=== PATIENT | female | born 1995 | race Caucasian/White ===

== ENCOUNTER → 2018-02-04 17:39 | Outpatient (CLI) | payer BC, SELFPAY ==
[2018-02-04 13:53] VITALS: BMI 25.9
[2018-02-04 22:28] LABS: Chlamydia Trachomatis by PCR Negative (Negative); Neisserai gonorrhoeae by PCR Negative (Negative); Probe Check PASS; Sample Adequacy Control PASS; Specimen Processing Control PASS
== END ==
PROVIDERS: Family Provider Student in an Organized Health Care Education/Training Program; PCP Student in an Organized Health Care Education/Training Program; Referring Provider Obstetrics & Gynecology; Visit Provider Obstetrics & Gynecology
DX: Z34.90 Encounter for supervision of normal pregnancy, unspecified, unspecified trimester (principal)
CPT/HCPCS: 87086; 87088; 87491; 87591

== ENCOUNTER → 2018-03-01 11:14 | Outpatient (CLI) | payer BC, SELFPAY ==
[2018-03-01 10:39] VITALS: BMI 26.3
[2018-03-01 11:36] LABS: Absolute Lymphocyte Count 1.83 X10^3/ul (0.83-4.51); Absolute Neutrophil Count 5.5 X10^3/uL (2.0-7.7); Basophil# 0.01 X10^3/uL; Basophil% 0.1 % (0-1); Eosinophil# 0.12 X10^3/uL; Eosinophils% 1.5 % (0-5); Hemoglobin 12.1 g/dl (12.0-15.0); Lymphocyte # 1.83 X10^3/ul (4.0); Lymphocyte % 23.4 % (19-41); Mean Corp Hgb Conc 33.6 g/gl (32-36); Mean Corpuscular Hgb 29.4 pg (27.0-32.0); Mean Corpuscular Volume 87.4 fL (81-99); Monocyte% 5.1 % (0-10); Neutrophil # 5.45 X10^3/uL (2.7-7.7); Neutrophil % 69.6 % (47-70); POSITIVE COUNT NO; POSITIVE DIFFERENTIAL NO; POSITIVE MORPHOLOGY NO; Platelet Count 194 K/mm3 (150-450); RBC Distribution Width CV 13.1 % (11.6-14.6); RBC Distribution Width SD 42.2 fl (35.1-43.9); Red Blood Count 4.12 M/mm3 (4.2-5.4); White Blood Count 7.8 K/mm3 (4.4-11.0)
[2018-03-01 13:18] LABS: HIV - WCH Non-Reactive (Nonreactive); Rubella IgG 45.2 IU/mL
[2018-03-02 11:27] LABS: HEPATITIS B SURFACE AG Negative (Negative)
[2018-03-04 01:10] LABS: Rapid Plasmin Reagin (RPR) NONREACTIVE (NONREACTIVE)
--- OUTSIDE RECORDS SUMMARY | 2018-05-03 15:07 | XMS RPT_ITS ---
:1995 Author Organization OHIP Care Team Providers Name Role Phone Marsha Pelayo Attending Unavailable Gerardo Alvarenga Referring Unavailable Marsha Pelayo Attending Unavailable Gerardo Alvarenga Primary Care Unavailable Marsha Pelayo Referring Unavailable Marsha Pelayo Attending Unavailable Gerardo Alvarenga Referring Unavailable Marsha Pelayo Attending Unavailable Marsha Pelayo Referring Unavailable AlvarengaGerardo Primary Care Unavailable PROBLEMS PROBLEMS DATE TYPE CONDITION / CODE ATTENDING STATUS SOURCE 03/01/2018 Unknown Z34.81 - Gita, Active [place] Encounter for [facility] other normal Repository , first trimester / Z34.81(ICD-10) 03/01/2018 Unknown Z3A.08 - 8 weeks Timwang, Active [place] gestation of [facility] Hospital Z3A.08(ICD-10) Repository 02/05/2018 Unknown Z34.90 - Kendrickjayashreewang, Active [place] Encounter for [facility] normal , Repository unspecified, unspecified trimester / Z34.90(ICD-10) PROCEDURES PROCEDURES No Procedure Records FoundRESULTS RESULTS CBC W/DIFF, AUTOMATED Collected: 03/01/2018 Status: F Source: [facility] 11:23 AM [facility] REPOSITORY TYPE CODE TESTS RESULT OUT OF RANGE REFERENCE UNITS LAB L100.1000 4.4-11.0 K/mm3 Normal WBC 7.8 LAB L100.1200 4.2-5.4 M/mm3 Low RBC 4.12 LAB L100.1300 12.0-15.0 g/dl Normal HGB 12.1 LAB L100.1400 37-47 % Low HCT 36.0 LAB L100.1500 81-99 fL Normal MCV 87.4 LAB L100.1600 27.0-32.0 pg Normal MCH 29.4 LAB L100.1700 32-36 g/gl Normal MCHC 33.6 LAB L100.1810 11.6-14.6 % Normal RDW CV 13.1 LAB L100.1820 35.1-43.9 fl Normal RDW SD 42.2 LAB L100.1900 150-450 K/mm3 Normal PLT 194 LAB L100.2000 6.2-12.0 fl Normal MPV 10.0 LAB L100.2100 47-70 % Normal NEUT% 69.6 LAB L100.2200 19-41 % Normal LY% 23.4 LAB L100.2300 0-10 % Normal MONO% 5.1 LAB L100.2400 0-5 % Normal EO% 1.5 LAB L100.2500 0-1 % Normal BASO% 0.1 LAB L100.2550 0.0-0.9 % Normal IM GRAN % 0.300 Result Comment: IG% - Immature Granulocytes (promyelocytes, myelocytes and metamyelocytes) > 1% indicates that a LEFT SHIFT is Present. LAB L100.2620 2.0-7.7 X10 3/uL Normal Absolute Neut 5.5 LAB L100.2720 0.83-4.51 X10 3/ul Normal Absolute Lymph 1.83 Performed By: #### L100.0100 #### [facility] [address] [place], [address] RUBELLA IGG Collected: 03/01/2018 Status: F Source: [place] 11:23 AM [facility] REPOSITORY TYPE CODE TESTS RESULT OUT OF RANGE REFERENCE UNITS LAB L509.4000 IU/mL Normal Rubella IgG 45.2 Result Comment: Antibody results Interpretation of Immune Status < 5 IU/ml Presumed Non-immune 5 - < 10 IU/ml Equivocal > or = 10 IU/ml Presumed Immune Performed By: #### L509.4000, L3890.6005 #### [facility] [place], [address] HIV - [facility] Collected: 03/01/2018 Status: F Source: [place] 11:23 AM [facility] REPOSITORY TYPE CODE TESTS RESULT OUT OF RANGE REFERENCE UNITS LAB L3890.6005 Nonreactive Normal HIV - [facility] Non-Reactive Performed By: #### L509.4000, L3890.6005 #### [facility] [address] [place], [address] TYPE AND SCREEN Collected: 03/01/2018 Status: F Source: [place] 11:23 AM [facility] REPOSITORY Order Comment: Reason for Type AND Screen/Red Cells: TYPE CODE TESTS RESULT OUT OF RANGE REFERENCE UNITS LAB B10.0800 O Normal BLOOD TYPE GEL POSITIVE LAB B100.4000 Normal Antibody NEGATIVE Screen Performed By: #### B101.7450 #### [facility] [address] [place], [address] HEPATITIS B SURFACE Collected: 03/01/2018 Status: F Source: [facility] 11:23 AM [facility] REPOSITORY TYPE CODE TESTS RESULT OUT OF RANGE REFERENCE UNITS LAB L3100.0400 Negative Normal HB Negative SURF AG Result Comment: Performed at: - [facility] [address] [id number] Qm Consultant: Balbir Tariq PhD, Phone: [phone] Performed By: #### L3100.0390 #### [facility] (refer to report for specific site) refer to report for address and phone number RAPID PLASMIN REAGIN Collected: 03/01/2018 Status: F Source: [place] (RPR) 11:23 AM [facility] REPOSITORY TYPE CODE TESTS RESULT OUT OF REFERENCE UNITS RANGE LAB L700.5000 NONREACTIVE NONREACTIVE Normal RPR Performed By: #### L700.5000 #### [facility] [address] [place], [address] VACUUM EXTRACTOR OPERATOR OFFICE VISIT Observed: 03/01/2018 Status: F Source: [place] REPORT 11:09 AM [facility] REPOSITORY [facility] [address] [place] [address] OFFICE VISIT Date of Service: 03/01/18 MR#: [id number] Acct: [id number] Name: ALVA STRAUSS Moise Rep #: [id number] : 1995 Provider: Marsha Pelayo MD Age/Sex: 22/F Location: [facility] Status: Signed Intake Vital Signs03/01/18 Height 5 ft 2 in 03/01/18 Weight: 144 lb 2 oz 03/01/18 Body Mass Index (BMI) 26.3 03/01/18 Blood Pressure 112/66 03/01/18 Body Mass Index (BMI) 25.9 Intake Visit Reasons: 12 WEEK OB Chief Complaint: est ob Terminal Supervisor Required: No Is patient in pain?: No Allergies No Known Allergies Allergy (Verified 03/01/18 10:39) Medications Vits [Prenatabs FA] 1 tab PO DAILY 03/01/16 [History Confirmed 03/01/18] promethazine 12.5 mg tablet 12.5 mg PO Q6H PRN #120 tab 03/01/18 [Rx Confirmed 03/01/18] Last Menstral Period: 12/08/17 Zika: Zika virus screening: Negative : No PFSH PFSH Family History Mother Crohns disease Father Colitis Social History number of children: 1 current occupational status: employed current occupation: [email or web address] Smoking Status: Never smoker alcohol intake: never substance use type: does not use what type of physical activity do you participate in: running frequency: 3-4 times per week seatbelt use: always do you feel safe at home: Yes additional social history: [employer] Pregancy History 2 Elective abortions Hx Para 1 Spontaneous abortions Past Pregnancies Del. DateName GA/Weeks Outcome Route Bth WeighInfant GeLabor LgtAnesthesiDel LocatProvider FOB t n h a n HPI 12 WEEK OB: Details: ALVA STRAUSS is a 22 year old who presents for routine OB visit. OB Visit CASEY Calculator Estimated Delivery Date 09/14/18 Based on LMP (certain) 12/08/17 Current WG 11w 6d Number 1 Expected Delivery Route/Plan Specific Issue/Plans flu vaccine: given tdap vaccine: [] rhogam: [] LARC form signed: [] labor support person: [] pain management: [] cut cord/dad catch: [] : [] PP control planned: [] discussed possible routes of delivery and associated risks: [] special requests: [] Initial Weight: 140 lb Date Weight BP Urine PrFHR FuHt Pres MoCTX DilationFetal StVisit NoProviderComments E ot v te GA G Effac lucose ed Visit Notes Visit Date: 03/01/18 co some headaches ordered phenergan, no vb cramping Marsha Pelayo MD on 03/01/18 ACOG First Trimester First Trimester: Desire for , Alcohol, Tobacco Cessation, Illicit/Recreational Drug/Substance Use, Intimate Partner Violence, Barriers to care, Unstable Housing, Communication Barriers, Environmental/Work Hazards, Anticipated Course of Care, Toxoplasmosis Precations, Use of Any medications, Sexual activity, Exercise, Dental Care, Sauna/Hot tub use, Seat Belt use, Childbirth classes/Hospital facilities, , Travel, Indications for US and Screening for Aneuploidy Diagnostics Diagnostics Labs Blood Type O POSITIVE 03/01/16 Antibody Screen NEGATIVE 03/01/16 Hct 34.4 % (37-47) L 03/01/16 Hgb 11.3 g/dl (12.0-15.0) L 03/01/16 Pap Smear Negative 07/22/15 Chlam trachomat DNA PCR Negative (Negative) 02/04/18 N.gonorrhoeae DNA (PCR) Negative (Negative) 02/04/18 Rhogam given: No 03/04/16 Details: HIV: Urine Culture: Sequential Screen: NIPT Screen: Results [id number] Office Urine Glucose Negative Last Edit by Sammi Craft on 03/01/18 10:42 Office Urine Protein Negative Last Edit by Sammi Craft on 03/01/18 10:42 Assessment AND Plan Problems 1. 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 anatomy scan ordered 2. Encounter for supervision of other normal in first trimester Z34.81 CASEY 09/14/18 PC Nicolás Liv Plan ACOG trimester education reviewed and updated. see problem list details for updated plan management information and see below for orders placed at this visit. GA appropriate handout given. Orders Orders: Medications New: Coding Level of Care Code OB Routine Diagnoses 8 weeks gestation of Z3A.08 Weeks of gestation: 8 weeks Encounter for supervision of other normal in first trimester Z34.81 Normal : other normal Trimester: first trimester 03/01/18 1109 <Electronically signed by Marsha Pelayo MD> Date Marsha Pelayo MD Cosign Signature: Date (if applicable) CC: CT/NG [facility] BY PCR Collected: 02/04/2018 Status: F Source: [facility] 5:51 PM [facility] REPOSITORY TYPE CODE TESTS RESULT OUT OF RANGE REFERENCE UNITS LAB L8200.2100 Negative Normal Chlam Negative Trac PCR LAB L8200.2200 Negative Normal NG by Negative PCR Performed By: #### L8200.2000, M100.0650 #### [facility] [address] [place], [address] Observed: 02/04/2018 Status: F Source: [place] CULTURE, URINE 5:51 PM [facility] REPOSITORY Urine Culture ORGANISM 1: Mixed Gram Positive Organisms [place] Count >100,000 MIX CULTURE Mixed contaminants. Submit a new specimen if indicated. Performed By: #### L8200.1999, M100.0650 #### [facility] [address] [place], [address] VACUUM EXTRACTOR OPERATOR OFFICE VISIT Observed: 02/04/2018 Status: F Source: [place] REPORT 2:42 PM [facility] REPOSITORY [facility] [address] [place] [address] OFFICE VISIT Date of Service: 02/04/18 MR#: [id number] Acct: [id number] Name: ALVA STRAUSS Rep #: [id number] : 1995 Provider: Marsha Pelayo MD Age/Sex: 22/F Location: [facility] Status: Signed Intake Vital Signs02/04/18 Height 5 ft 2 in 02/04/18 Weight: 142 lb 02/04/18 Body Mass Index (BMI) 25.9 02/04/18 Blood Pressure 112/64 Intake Visit Reasons: NOB - LMP 12/08 Terminal Supervisor Required: No Is patient in pain?: No Allergies No Known Allergies Allergy (Verified 02/04/18 13:54) Medications Vits [Prenatabs FA] 1 tab PO DAILY 03/01/16 [History Confirmed 03/01/16] Last Menstral Period: 12/08/17 Zika: Zika virus screening: Negative : No PFSH PFSH Family History Mother Crohns disease Father Colitis Social History number of children: 1 current occupational status: employed current occupation: [email or web address] Smoking Status: Never smoker alcohol intake: never substance use type: does not use what type of physical activity do you participate in: running frequency: 3-4 times per week seatbelt use: always do you feel safe at home: Yes additional social history: [employer] Pregancy History 2 Elective abortions Hx Para 1 Spontaneous abortions Past Pregnancies Del. DateName GA/Weeks Outcome Route Bth WeighInfant GeLabor LgtAnesthesiDel LocatProvider FOB t n h a n HPI NOB - LMP 12/08: Details: ALVA STRAUSS is a 22 year old who presents for New OB visit. OB Visit Comments: Limited transvaginal ultrasound performed to confirm EDC and viability. CRL is 15 mm measuring 8w1d which is consistent with LMP. FHTs 180. no gross abnormalities noted. Menstrual History Last Menstral Period: 12/08/17 Reported LMP: definite Normal amount/duration: Yes On hormonal BC at conception: No Antepartum Record Genetic Screening: Congenital Heart Defect: Other, Neural Tube Defect: Other, Hemoglobinopathy Or Carrier: Other, Cystic Fibrosis: Other, Chromosome Abnormality: Other, Mor-Sachs: Other, Hemophilia: Other, Intellectual Disability/Autism: Other, Recurrent Loss/Stillbirth: Other, Other Structural Defect: Partner (facial dermoid cyst, gradfather with syndactly), Other Genetic Disease: Other, Maternal Metabolic Disorder: Other Infection History: Live with someone with TB or Exposed to TB: No, Patient or Partner has history of Genital Herpes: No, Rash or Viral illness since last mentrual period: No, Prior GBS-Infected child: No, History of STD: No, HIV Infection: No, History of Hepatitis: No, Recent travel outside of [place]: No, Concern for Hep exposure: No, Varicella immune: Yes Medical History Medical History: Positive: Depression/ depression, Negative: Diabetes, Hypertension, Heart disease, Auto-immune disorder, Kidney disease/UTI, Neurologic/epilepsy, Psychiatric, Hepatitis/liver disease, Varicosities/phlebitis, Thyroid dysfunction, Trauma/domestic violence, History of blood transfusions, D (Rh) Sensitized, Pulmonary (e.g.,TB,Asthma), Seasonal allergies, Drug/latex allergies/reactions, Breast, Executive Vice President Business Development surgery, Operations/hospitalizations, Anesthetic complications, History of abnormal pap, Uterine anomaly/lucio, Infertility, Anti-retroviral treatment, Relevant family history, Other ACOG First Trimester First Trimester: Desire for , Alcohol, Tobacco Cessation, Illicit/Recreational Drug/Substance Use, Intimate Partner Violence, Barriers to care, Unstable Housing, Communication Barriers, Environmental/Work Hazards, Anticipated Course of Care, Nurtrition and weight gain, Toxoplasmosis Precations, Use of Any medications, Sexual activity, Exercise, Dental Care, Sauna/Hot tub use, Seat Belt use, Childbirth classes/Hospital facilities, , Travel, Indications for US and Screening for Aneuploidy ROS Const Denies fever(s), Reports system reviewed and no additional complaints, except as docu, Reports fatigue Eyes Reports system reviewed and no additional complaints, except as docu ENT Reports system reviewed and no additional complaints, except as docu Card Denies chest pain, Denies shortness of breath Resp Reports system reviewed and no additional complaints, except as docu, Denies shortness of breath, Denies cough GI Reports nausea, Denies abdominal pain Reports system reviewed and no additional complaints, except as docu Musc Reports system reviewed and no additional complaints, except as docu Skin/Breast Reports system reviewed and no additional complaints, except as docu Neuro Yes system reviewed and no additional complaints, except as docu Psych Reports system reviewed and no additional complaints, except as docu Endo Reports fatigue, Reports system reviewed and no additional complaints, except as docu Exam Const General: healthy appearing, comfortable, no acute distress Orientation: alert [facility] Head: normal to inspection, atraumatic, normocephalic Ears: external ears normal, hearing grossly normal bilaterally Nose: nares normal, external nose normal Mouth: oral mucosae normal Teeth and gingiva: dentition normal Eyes General: appearance normal, both eyes and all related structures Neck Neck: no lymphadenopathy, supple, normal visual inspection Thyroid: thyroid normal Chest Chest palpation AND inspection: normal inspection of the chest Breast inspection: normal inspection of the breasts, normal inspection of the axillae Breast palpation: normal palpation of the breasts, normal palpation of the axillae Resp Effort AND Inspection: normal respiratory effort GI Inspection: normal to inspection Palpation: soft, no hepatosplenomegaly General: bladder normal to palpation External Female Exam: normal external appearance, normal appearance of the urethra Urethra: normal appearance of the urethra Speculum Exam - Vagina: normal appearance of the vagina, normal vaginal discharge Speculum Exam - Cervix: normal appearance of the cervix Bimanual Exam- Vagina AND Uterus: bladder normal to palpation, normal bimanual exam, uterus non-tender, other Bimanual Exam- Adnexa, other: adnexae non-tender Skin General: no rashes or lesions noted Neuro Motor: muscle tone normal throughout, no movement abnormalities noted Extrem General: normal to inspection, full ROM Assessment AND Plan Problems 1. Encounter for supervision of other normal in first trimester Z34.81 CASEY 09/14/18 PC Nicolás Liv 2. 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 Plan Patient oriented to practice and discussed care expectations and screenings. ACOG book offered to patient. Discussed routine and specially indicated labs if needed- patient consents to testing. see problem list details for plan information. Optional screening including carrier screenings, neural tube defect screening, sequential screening, and NIPT screening offered to patient and patient chose: discussed Orders Orders: Supplemental Info ACOG book given and patient encouraged to read about nutrition, exercise, weight gain, and food avoidance in . Coding Level of Care Code OB Routine Diagnoses Encounter for supervision of other normal in first trimester Z34.81 Normal : other normal Trimester: first trimester 8 weeks gestation of Z3A.08 Weeks of gestation: 8 weeks 02/04/18 1442 <Electronically signed by Marsha Pelayo MD> Date Marsha Pelayo MD Cosigner Signature: Date (if applicable) CC: ALLERGIES ALLERGIES DATE TYPE / CODE NAME / CODE REACTION SEVERITY SOURCE 03/01/2018 Drug No Known Unknown [facility] Allergy/4160 Allergies/F00 Hospital 51738(SNOMED 6245810(RXNOR Repository CT) M) ENCOUNTERS ENCOUNTERS ADMIT/DISCHARGE ACCOUNT ADMITTING ENCOUNTER LOCATION SOURCE NUMBER CLASS 03/01/[id number] ing:PAVLAB Repository 03/01/2018/ [id number] Ambulatory BMSBuilding:Danielle [facility]ok [address] [facility] Repository 02/04/2018 [id number] [address] Repository 02/04/2018/ [id number] Ambulatory BMSBuilding:B [place] [address] Repository PAYERS PAYERS ENCOUNTER GUARANTOR PAYER SUBSCRIBER SOURCE 03/01/2018 ALVA STRAUSS4546 Primary LIV CHICO STEVENS Insurance:ANTHEMPolic BUSSDOB: [facility] james SIM y Number: [id number] Hospital [address]Bjs: (330) [id number] Repository [phone] () Date:[id number] [id number] [place] [address]WK: 03/01/2018 Secondary NOT GIVENUNK [place] Insurance:SELF PAY [facility] Number: Effective Repository Date:2018-03-01 03/01/2018 ALVA STRAUSS4546 Primary LIV CHICO STEVENS Insurance:ANTHEMPolic BUSSDOB: [facility] james SIM y Number: [id number] Hospital [address]Xhi: (330) [id number] Repository [phone] () Date:[id number] [id number] [place] [address]QN: 03/01/2018 Secondary NOT GIVENUNK [place] Insurance:SELF PAY [facility] Number: Effective Repository Date:2018-03-01 02/04/2018 ALVA HASSANS4546 Primary LIV CHIOC STEVENS Insurance:ANTHEMPolic [facility] [place] y Number: [id number] Hospital [address]Ozd: (330) [id number] Repository [phone] () Date:[id number] [address], [place] [address]JN: 02/04/2018 Secondary NOT GIVENUNK [place] Insurance:SELF PAY [facility] Number: Effective Repository Date:2018-02-04 02/04/2018 ALVA HASSANS4546 Primary LIV CHICO STEVENS Insurance:ANTHEMPolic [facility] [place] Number: [id number] [facility] [address]Xur: 330 [id number] Repository [phone] () Date:[id number] [address], [place] [address]YE: 02/04/2018 Secondary NOT GIVENUNK [place] Insurance:SELF [facility]Y [facility] Number: Effective Repository Date:2018-02-04
== END ==
PROVIDERS: Family Provider Student in an Organized Health Care Education/Training Program; PCP Student in an Organized Health Care Education/Training Program; Referring Provider Obstetrics & Gynecology; Visit Provider Obstetrics & Gynecology
DX: Z34.90 Encounter for supervision of normal pregnancy, unspecified, unspecified trimester (principal)
CPT/HCPCS: 36415; 85025; 86592; 86703; 86762; 86850; 86900; 87340

== ENCOUNTER 2018-04-02 11:54 | Emergency (ER) | payer BC, SELFPAY ==
[2018-03-29 14:14] VITALS: BMI 26.2
[2018-04-02 11:56] VITALS: BP 115/69; PULSE 86; RESP 16; TEMP 36.5; O2SAT 100; BMI 26.5
--- NOTE | 2018-04-02 12:06 | US_ITS ---
STUDY: RENAL ULTRASOUND - COMPLETE REASON FOR EXAM: Female, 22 years old. 16 weeks , left flank pain TECHNIQUE: Ultrasound evaluation of the kidneys was performed with real-time and static england-scale imaging. COMPARISON: None. FINDINGS: RIGHT KIDNEY: Normal location of the right kidney, which is normal in size. The right kidney measures 10.9 x 5.1 x 4.3 cm. There is a normal cortex of the right kidney. The renal cortex measures 1.3 cm. There is no right renal mass or cyst. There are no right renal calculi. There is an extra-renal pelvis of the right kidney. There is no distention of the renal calyces. DISTAL RIGHT URETER: There is non-visualization of the distal right ureter. There is no demonstrated right ureterovesical junction calculus. There is a visualized right ureteral jet. LEFT KIDNEY: Normal location of the left kidney, which is normal in size. The left kidney measures 11.0 x 5.3 x 5.0 cm. There is a normal cortex of the left kidney. The renal cortex measures 1.3 cm. There is no left renal mass or cyst. There are no left renal calculi. There is mild hydronephrosis (with slight calyceal dilation) of the left kidney. DISTAL LEFT URETER: There is non-visualization of the distal left ureter. There is no demonstrated left ureterovesical junction calculus. There is a visualized left ureteral jet. Gravid uterus partially visualized. BLADDER: The urinary bladder is not well distended. There is no demonstrated mass within the urinary bladder. There are no demonstrated bladder calculi. US/Kidney and Bladder IMPRESSION: 1. Minimal left hydronephrosis. Bilateral ureteral jets are confirmed, however. 2. No shadowing calculi. 3. Gravid uterus partially visualized. Electronically Signed: Ld Gómez MD at 13:41 EST , Service support ,
[2018-04-02] MEDS: 0.9% Normal Saline 1,000 ML 1000 ML IV (12:20)
[2018-04-02 12:27] LABS: Bacteria 0 SEEN /hpf (None Seen); Mucous, Urine 0 SEEN /hpf (<or=2+); Squamous Epithelial Cells - UA 0 SEEN /hpf (5-10); White Blood Cells 0 SEEN /hpf (0-5)
[2018-04-02 12:30] LABS: Absolute Lymphocyte Count 1.13 X10^3/ul (0.83-4.51); Absolute Neutrophil Count 8.5 X10^3/uL (2.0-7.7); Basophil# 0.01 X10^3/uL; Basophil% 0.1 % (0-1); Eosinophil# 0.07 X10^3/uL; Eosinophils% 0.7 % (0-5); Hematocrit 35.9 % (37-47); Lymphocyte # 1.13 X10^3/ul (4.0); Lymphocyte % 11.1 % (19-41); Mean Corp Hgb Conc 33.4 g/gl (32-36); Mean Corpuscular Hgb 29.7 pg (27.0-32.0); Mean Corpuscular Volume 88.9 fL (81-99); Mean Platelet Vol. 10.3 fl (6.2-12.0); Monocyte# 0.38 X10^3/uL; Monocyte% 3.7 % (0-10); Neutrophil # 8.54 X10^3/uL (2.7-7.7); Platelet Count 192 K/mm3 (150-450); RBC Distribution Width CV 13.3 % (11.6-14.6); RBC Distribution Width SD 43.2 fl (35.1-43.9); Red Blood Count 4.04 M/mm3 (4.2-5.4); White Blood Count 10.2 K/mm3 (4.4-11.0)
[2018-04-02 12:31] LABS: POSITIVE COUNT NO; POSITIVE DIFFERENTIAL NO; POSITIVE MORPHOLOGY NO
[2018-04-02 12:33] LABS: Color, Urine Yellow (Yellow); Glucose, Dipstick Normal (Normal); Ketone-Dipstick Negative (Negative); Leukocyte Esterase-Dipstick 100 /ul (Negative); Nitrite-Dipstick Negative (Negative); Occult Blood-Urine 150 /ul (Negative); Protein-Dipstick Negative (Negative); Urine Bilirubin Dipstick Negative (Negative); Urine Clarity Sl. Cloudy (Clear); Urine Urobilinogen Normal (Normal); Urine pH 6.5 (5.0 - 8.0)
[2018-04-02 12:38] LABS: Red Blood Cells-Urine 10-25 SEEN /hpf (0-5)
[2018-04-02 12:59] LABS: ALB/GLOB Ratio 0.8 RATIO (0.9-2.4); AST(SGOT) 17 U/L (15-37); Alanine Aminotransfer ALT/SGPT 16 U/L (13-56); Albumin, Serum 3.3 g/dL (3.2-5.0); Alkaline Phosphatase 64 U/L (45-117); Anion Gap 8 (5-15); BUN 10 mg/dL (7-18); BUN/Creat Ratio 16.4 RATIO (10-20); Calcium,Total 8.8 mg/dL (8.5-10.1); Chloride 106 mmol/L (98-107); Creatinine, Serum 0.61 mg/dL (0.55-1.02); EST Glomerular Filtration Rate 129 mL/min (>60); Est Glom Filt Rate - Afr Amer 156 mL/min (>60); Estimated Creatinine Clearance 113.44 ml/min; Globulin 4.1 g/dL (2.2-4.2); Glucose 98 mg/dL (74-106); Potassium 3.6 mmol/L (3.5-5.1); Protein, Total 7.4 g/dL (6.4-8.2); Sodium Level 136 mmol/L (136-145)
[2018-04-02 14:04] VITALS: BP 101/65; PULSE 84; RESP 22; O2SAT 100
--- NOTE | 2018-04-02 14:10 | ED.DCSUM_ITS ---
- ER Visit Summary Date of Service: 04/02/18 Chief Complaint: Flank pain History of Present Illness: The patient is a 22 F presents to the emergency department flank pain. The patient is at approximately 16 weeks gestation. She states she had mild pain in her left flank last night and worsened today. She does admit to some urinary frequency. She denies any fevers or chills. She has no history of prior kidney stone. She did speak with her SURVEILLANCE OBSERVER, who referred her in for further evaluation. Physical Examination: Vital signs reviewed General: Well-nourished, well-developed Head: Normocephalic, atraumatic Eyes: Pupils equal and reactive, extraocular muscles intact Neck, supple, no lymphadenopathy Heart: Regular rate and rhythm Respiratory: No distress, clear bilaterally Abdomen: Soft, nontender, nondistended, no peritoneal signs Back: Nontender Extremities: Nontender, no edema, no cords Skin: Normal color no rash Neuro: Alert and oriented, no focal or lateralizing deficits Test Results: [] Emergency Department Course and Treatment: The patient has a nontender abdomen. I do suspect that she may have kidney stone. Given her advanced , I do not feel that CT was appropriate. Patient was given IV fluids. She had already taken Tylenol at home and had improvement of her symptoms. Screening labs obtained were unremarkable. Urine shows no evidence of infection. Ultrasound does show mild left-sided hydronephrosis, but she does have a normal ureteral jets. I do not feel that she is obstructed. The patient has been pain-free. She may have a small stone, but is resting comfortably. Her urine shows no evidence of infection. I did discuss her care with Dr. Pelayo. At this time, the patient will be discharged home. Treatment Plan: [] Disposition: Discharge Impression: 1. Left renal colic This note was generated with [employer] dictation software. It may contain incorrect words, spelling, and punctuation that were not noted in review of the chart prior to signing ED Disposition - Plan for ED Patient: Disposition: Home or Assisted Living Instructions: ED Stone Renal Passed Referrals: Marsha Pelayo MD [STAFF PHYSICIAN] -
== END 2018-04-02 14:23 | disposition home or self-care (01) ==
PROVIDERS: Emergency Provider Emergency Medicine; Family Provider Student in an Organized Health Care Education/Training Program; PCP Student in an Organized Health Care Education/Training Program
DX: O26.892 Other specified pregnancy related conditions, second trimester (principal); N23 Unspecified renal colic; N13.30 Unspecified hydronephrosis; Z3A.16 16 weeks gestation of pregnancy
CPT/HCPCS: 76770; 80053; 81001; 85025; 87086; 87088; 96360; 99284; J7030; A4216

== ENCOUNTER → 2018-06-09 10:41 | Outpatient (CLI) | payer BC, SELFPAY ==
[2018-06-03 15:10] VITALS: BMI 28.3
[2018-06-09 11:11] LABS: Absolute Lymphocyte Count 1.08 X10^3/ul (0.83-4.51); Absolute Neutrophil Count 5.9 X10^3/uL (2.0-7.7); Basophil# 0.01 X10^3/uL; Basophil% 0.1 % (0-1); Eosinophil# 0.11 X10^3/uL; Eosinophils% 1.4 % (0-5); Hematocrit 31.1 % (37-47); Hemoglobin 10.3 g/dl (12.0-15.0); Lymphocyte # 1.08 X10^3/ul (4.0); Lymphocyte % 13.5 % (19-41); Mean Corp Hgb Conc 33.1 g/gl (32-36); Mean Corpuscular Hgb 29.3 pg (27.0-32.0); Mean Corpuscular Volume 88.4 fL (81-99); Mean Platelet Vol. 9.7 fl (6.2-12.0); Monocyte# 0.89 X10^3/uL; Monocyte% 11.1 % (0-10); Neutrophil # 5.85 X10^3/uL (2.7-7.7); Platelet Count 178 K/mm3 (150-450); RBC Distribution Width SD 41.7 fl (35.1-43.9); Red Blood Count 3.52 M/mm3 (4.2-5.4)
[2018-06-09 11:12] LABS: POSITIVE COUNT NO; POSITIVE DIFFERENTIAL NO; POSITIVE MORPHOLOGY NO
[2018-06-09 11:17] LABS: Glucose Challenge Gest 1H 50g 130 mg/dL (70-140)
[2018-06-09 11:32] LABS: T4 Total, Thyroxin 10.5 ug/dL (4.8-13.9)
== END ==
PROVIDERS: Internal Medicine Cardiovascular Disease; Nurse Practitioner Women's Health; Family Provider Student in an Organized Health Care Education/Training Program; PCP Student in an Organized Health Care Education/Training Program; Visit Provider Obstetrics & Gynecology
DX: O26.892 Other specified pregnancy related conditions, second trimester (principal); R00.2 Palpitations; R00.0 Tachycardia, unspecified; Z3A.25 25 weeks gestation of pregnancy
CPT/HCPCS: 36415; 82950; 84436; 84443; 85025

== ENCOUNTER → 2018-06-28 14:22 | Outpatient (CLI) | payer BC, SELFPAY ==
[2018-06-28 08:36] VITALS: BMI 28.3
== END ==
PROVIDERS: Family Provider Student in an Organized Health Care Education/Training Program; PCP Student in an Organized Health Care Education/Training Program; Referring Provider Obstetrics & Gynecology; Visit Provider Obstetrics & Gynecology
DX: N89.8 Other specified noninflammatory disorders of vagina (principal)
CPT/HCPCS: 87070; 87205

== ENCOUNTER 2018-08-09 10:05 | Outpatient (CLI) | payer BC, SELFPAY ==
[2018-08-09 09:57] VITALS: BMI 28.3
[2018-08-09 10:51] LABS: Hematocrit 30.1 % (37-47); Hemoglobin 9.6 g/dl (12.0-15.0); Mean Corp Hgb Conc 31.9 g/gl (32-36); Mean Corpuscular Hgb 26.7 pg (27.0-32.0); Mean Corpuscular Volume 83.6 fL (81-99); Mean Platelet Vol. 10.9 fl (6.2-12.0); Platelet Count 177 K/mm3 (150-450); RBC Distribution Width CV 13.4 % (11.6-14.6); RBC Distribution Width SD 41.3 fl (35.1-43.9); White Blood Count 6.9 K/mm3 (4.4-11.0)
[2018-08-09 10:52] LABS: Scan Indicated on CBC? Y/N NO
[2018-08-09 11:03] LABS: Prothrombin Time (Protime)PT. 12.7 SECONDS (11.7-14.9)
[2018-08-09 11:07] VITALS: BMI 31.2
[2018-08-09 11:07] LABS: AST(SGOT) 19 U/L (15-37); Alanine Aminotransfer ALT/SGPT 19 U/L (13-56); EST Glomerular Filtration Rate 131 mL/min (>60); Est Glom Filt Rate - Afr Amer 159 mL/min (>60); Uric Acid 3.9 mg/dL (2.6-6.0)
[2018-08-09 11:32] LABS: Protein, Urine (Random) 22.9 mg/dL (<11.9); Protein:Creat Ratio 161 mg/g CRE (0-200)
--- NOTE | 2018-08-09 14:30 | OB.TRI.PN ---
Progress Notes Date of Service: 08/09/18 Progress Note: seen for contractions and not feeling well fht 150 moderate variability reactive no decelerations category I tracing [place]: irregular no significant dilation, normal labs false labor reactive NST dc home Laboratory Studies: Laboratory Tests 08/09/18 08/09/18 08/09/18 Range/Units 11:10 10:40 10:40 WBC (4.4-11.0) K/mm3 RBC (4.2-5.4) M/mm3 Hgb (12.0-15.0) g/dl Hct (37-47) % MCV (81-99) fL MCH (27.0-32.0) pg MCHC (32-36) g/gl RDW (11.6-14.6) % RDW Differential (35.1-43.9) fl Plt Count (150-450) K/mm3 MPV (6.2-12.0) fl PT 12.7 (11.7-14.9) SECONDS INR 1.0 APTT 23.0 L (24.1-36.2) Seconds Creatinine 0.60 (0.55-1.02) mg/dL Est GFR (MDRD) Af Amer 159 (>60) mL/min Est GFR (MDRD) Non-Af 131 (>60) mL/min Uric Acid 3.9 (2.6-6.0) mg/dL AST 19 (15-37) U/L ALT 19 (13-56) U/L U Random Total Protein 22.9 H (<11.9) mg/dL Urine Creatinine 142.00 (NO RANGE EST.) mg/dL Protein/Creatinin Ratio 161 (0-200) mg/g CRE 08/09/18 Range/Units 10:40 WBC 6.9 (4.4-11.0) K/mm3 RBC 3.60 L (4.2-5.4) M/mm3 Hgb 9.6 L (12.0-15.0) g/dl Hct 30.1 L (37-47) % MCV 83.6 (81-99) fL MCH 26.7 L (27.0-32.0) pg MCHC 31.9 L (32-36) g/gl RDW 13.4 (11.6-14.6) % RDW Differential 41.3 (35.1-43.9) fl Plt Count 177 (150-450) K/mm3 MPV 10.9 (6.2-12.0) fl PT (11.7-14.9) SECONDS INR APTT (24.1-36.2) Seconds Creatinine (0.55-1.02) mg/dL Est GFR (MDRD) Af Amer (>60) mL/min Est GFR (MDRD) Non-Af (>60) mL/min Uric Acid (2.6-6.0) mg/dL AST (15-37) U/L ALT (13-56) U/L U Random Total Protein (<11.9) mg/dL Urine Creatinine (NO RANGE EST.) mg/dL Protein/Creatinin Ratio (0-200) mg/g CRE
== END 2018-08-09 11:50 | disposition home or self-care (01) ==
LOC: WPOUT 10:15 → OBT 10:18
PROVIDERS: Family Provider Student in an Organized Health Care Education/Training Program; PCP Student in an Organized Health Care Education/Training Program; Referring Provider Obstetrics & Gynecology; Visit Provider Obstetrics & Gynecology
DX: O47.9 False labor, unspecified (principal); Z3A.00 Weeks of gestation of pregnancy not specified
CPT/HCPCS: 36415; 59025; 59050; 82565; 82570; 84156; 84450; 84460; 84550; 85027; 85610; 85730; 99218; G0378

== ENCOUNTER 2018-08-19 11:20 | Outpatient (CLI) | payer BC, SELFPAY ==
[2018-08-19 10:27] VITALS: BMI 31.2
[2018-08-19] MEDS: Lactated Ringers 1,000 ML 999 ML IV (11:55)
[2018-08-19 12:14] LABS: Hematocrit 31.4 % (37-47); Hemoglobin 10.1 g/dl (12.0-15.0); Mean Corp Hgb Conc 32.2 g/gl (32-36); Mean Corpuscular Hgb 26.2 pg (27.0-32.0); Mean Corpuscular Volume 81.3 fL (81-99); Mean Platelet Vol. 11.6 fl (6.2-12.0); Platelet Count 190 K/mm3 (150-450); RBC Distribution Width CV 13.5 % (11.6-14.6); RBC Distribution Width SD 38.6 fl (35.1-43.9); Red Blood Count 3.86 M/mm3 (4.2-5.4); Scan Indicated on CBC? Y/N NO; White Blood Count 7.9 K/mm3 (4.4-11.0)
[2018-08-19 12:33] VITALS: BMI 31.2
[2018-08-19 13:07] LABS: ALB/GLOB Ratio 0.6 RATIO (0.9-2.4); AST(SGOT) 18 U/L (15-37); Alanine Aminotransfer ALT/SGPT 18 U/L (13-56); Albumin, Serum 2.5 g/dL (3.2-5.0); Alkaline Phosphatase 159 U/L (45-117); Anion Gap 8 (5-15); BUN 9 mg/dL (7-18); Calcium,Total 9.1 mg/dL (8.5-10.1); Chloride 107 mmol/L (98-107); EST Glomerular Filtration Rate 130 mL/min (>60); Est Glom Filt Rate - Afr Amer 157 mL/min (>60); Estimated Creatinine Clearance 114.35 ml/min; Globulin 4.4 g/dL (2.2-4.2); Glucose 76 mg/dL (74-106); Potassium 3.8 mmol/L (3.5-5.1); Protein, Total 6.9 g/dL (6.4-8.2); Sodium Level 138 mmol/L (136-145)
[2018-08-19 13:23] LABS: Mucous, Urine 0 SEEN /hpf (<or=2+); Red Blood Cells-Urine 0 SEEN /hpf (0-5)
[2018-08-19 14:10] LABS: Color, Urine Yellow (Yellow); Glucose, Dipstick Normal (Normal); Ketone-Dipstick Negative (Negative); Leukocyte Esterase-Dipstick 500 /ul (Negative); Nitrite-Dipstick Negative (Negative); Occult Blood-Urine Negative /ul (Negative); Protein-Dipstick Negative (Negative); Urine Bilirubin Dipstick Negative (Negative); Urine Clarity Sl. Cloudy (Clear); Urine Urobilinogen Normal (Normal)
[2018-08-19 14:18] LABS: Bacteria 1+ /hpf (None Seen); Squamous Epithelial Cells - UA 0-5 SEEN /hpf (5-10); White Blood Cells 25-50 SEEN /hpf (0-5)
--- NOTE | 2018-08-24 04:47 | OB.TRI.PN ---
Progress Notes Date of Service: 08/19/18 Progress Note: Patient presented for tachycardia and diarrhea for several days. Patient was seen in the office and evaluated and was sent to labor and delivery for extended monitoring. heart tones 150 moderate variability reactive no decelerations category 1 tracing [place]: Irregular contractions Assessment and plan tachycardia and diarrhea?patient stable and overall reassuring status DC home active oral hydration Laboratory Studies: Laboratory Tests 08/19/18 08/19/18 08/19/18 Range/Units 13:10 11:55 11:55 WBC 7.9 (4.4-11.0) K/mm3 RBC 3.86 L (4.2-5.4) M/mm3 Hgb 10.1 L (12.0-15.0) g/dl Hct 31.4 L (37-47) % MCV 81.3 (81-99) fL MCH 26.2 L (27.0-32.0) pg MCHC 32.2 (32-36) g/gl RDW 13.5 (11.6-14.6) % RDW Differential 38.6 (35.1-43.9) fl Plt Count 190 (150-450) K/mm3 MPV 11.6 (6.2-12.0) fl Sodium 138 (136-145) mmol/L Potassium 3.8 (3.5-5.1) mmol/L Chloride 107 (98-107) mmol/L Carbon Dioxide 23.0 (21.0-32.0) mmol/L Anion Gap 8 (5-15) BUN 9 (7-18) mg/dL Creatinine 0.60 (0.55-1.02) mg/dL Estim Creat Clear Calc 114.35 ml/min Est GFR (MDRD) Af Amer 157 (>60) mL/min Est GFR (MDRD) Non-Af 130 (>60) mL/min BUN/Creatinine Ratio 15.0 (10-20) RATIO Glucose 76 (74-106) mg/dL Calcium 9.1 (8.5-10.1) mg/dL Total Bilirubin 0.20 (0.20-1.00) mg/dL AST 18 (15-37) U/L ALT 18 (13-56) U/L Alkaline Phosphatase 159 H (45-117) U/L Total Protein 6.9 (6.4-8.2) g/dL Albumin 2.5 L (3.2-5.0) g/dL Globulin 4.4 H (2.2-4.2) g/dL Albumin/Globulin Ratio 0.6 L (0.9-2.4) RATIO Urine Color Yellow (Yellow) Urine Clarity Sl. Cloudy (Clear) Urine pH 7.0 (5.0 - 8.0) Ur Specific [place] 1.010 (1.002-1.030) Urine Protein Negative (Negative) mg/dl Urine Glucose (UA) Normal (Normal) mg/dl Urine Ketones Negative (Negative) mg/dl Urine Occult Blood Negative (Negative) /ul Urine Nitrite Negative (Negative) Urine Bilirubin Negative (Negative) mg/dL Urine Urobilinogen Normal (Normal) mg/dl Ur Leukocyte Esterase 500 H (Negative) /ul Urine RBC 0 SEEN (0-5) /hpf Urine WBC 25-50 SEEN (0-5) /hpf Ur Squamous Epith Cells 0-5 SEEN (5-10) /hpf Urine Bacteria 1+ (None Seen) /hpf Urine Mucus 0 SEEN (<or=2+) /hpf
== END 2018-08-19 15:10 | disposition home or self-care (01) ==
LOC: WPOUT 11:25 → WP 11:26
PROVIDERS: Family Provider Student in an Organized Health Care Education/Training Program; PCP Student in an Organized Health Care Education/Training Program; Referring Provider Obstetrics & Gynecology; Visit Provider Obstetrics & Gynecology
DX: O76 Abnormality in fetal heart rate and rhythm complicating labor and delivery (principal); Z3A.00 Weeks of gestation of pregnancy not specified
CPT/HCPCS: 36415; 59025; 59050; 80053; 81001; 85027; 87077; 87081; 87086; 87088; 87186; 99218; J7120; G0378

== ENCOUNTER 2018-09-02 10:39 | Outpatient (CLI) | payer BC, SELFPAY ==
[2018-09-02 10:35] VITALS: BMI 31.2
[2018-09-02 11:41] VITALS: BMI 32.0
[2018-09-02 11:50] LABS: Hematocrit 30.5 % (37-47); Hemoglobin 9.6 g/dL (12.0-15.0); Mean Corp Hgb Conc 31.5 g/dL (32-36); Mean Corpuscular Hgb 26.1 pg (27.0-32.0); Mean Corpuscular Volume 82.9 fL (81-99); Mean Platelet Vol. 11.1 fl (6.2-12.0); Platelet Count 186 K/mm3 (150-450); RBC Distribution Width CV 13.9 % (11.6-14.6); RBC Distribution Width SD 41.4 fl (35.1-43.9); Red Blood Count 3.68 M/mm3 (4.2-5.4); White Blood Count 7.3 K/mm3 (4.4-11.0)
[2018-09-02 11:53] LABS: Prothrombin Time (Protime)PT. 12.5 SECONDS (11.7-14.9)
[2018-09-02 11:54] LABS: Partial Thromboplast Time 23.6 Seconds (24.1-36.2)
[2018-09-02 11:59] LABS: AST(SGOT) 22 U/L (15-37); Alanine Aminotransfer ALT/SGPT 18 U/L (13-56); Creatinine, Serum 0.64 mg/dL (0.55-1.02); EST Glomerular Filtration Rate 121 mL/min (>60); Est Glom Filt Rate - Afr Amer 146 mL/min (>60); Uric Acid 4.5 mg/dL (2.6-6.0)
[2018-09-02 12:26] LABS: Protein, Urine (Random) 31.2 mg/dL (<11.9); Protein:Creat Ratio 182 mg/g CRE (0-200)
--- NOTE | 2018-09-03 10:13 | OB.TRI.HP_ITS ---
- Problem List (1) Elevated blood pressure affecting in third trimester, antepartum Status: Acute History of Present Illness Date of Service: 09/02/18 Was patient seen by the physician?: No Reason For Visit: R/O PIH History of Present Illness: 38 weeks elevated bp in th eoffice not feeling well, repeat bps and labs all normal neg proteinuria 140 moderate variability reactive no decelerations category I tracing [place]: no regular a/p: elevate dbps in - all repeat WNL cat I tracing reactiv enst dc home preeclampsia precautions Allergies No Known Allergies Allergy (Verified 09/02/18 11:39) - Pertinent Past Medical History Medical History: Past Medical History (Last Reviewed 09/02/18 @ 10:08 by Chichi Mccarthy) Palpitations (Acute) Tachycardia (Acute) Migraine headache IBS (irritable bowel syndrome) Laboratory Studies: Laboratory Tests 09/02/18 09/02/18 09/02/18 Range/Units 12:05 11:35 11:35 WBC (4.4-11.0) K/mm3 RBC (4.2-5.4) M/mm3 Hgb (12.0-15.0) g/dL Hct (37-47) % MCV (81-99) fL MCH (27.0-32.0) pg MCHC (32-36) g/dL RDW Std Deviation (35.1-43.9) fl RDW Coeff of Angelina (11.6-14.6) % Plt Count (150-450) K/mm3 MPV (6.2-12.0) fl PT 12.5 (11.7-14.9) SECONDS INR 1.0 APTT 23.6 L (24.1-36.2) Seconds Creatinine 0.64 (0.55-1.02) mg/dL Estim Creat Clear Calc 107.20 ml/min Est GFR (MDRD) Af Amer 146 (>60) mL/min Est GFR (MDRD) Non-Af 121 (>60) mL/min Uric Acid 4.5 (2.6-6.0) mg/dL AST 22 (15-37) U/L ALT 18 (13-56) U/L U Random Total Protein 31.2 H (<11.9) mg/dL Urine Creatinine 171.00 (NO RANGE EST.) mg/dL Protein/Creatinin Ratio 182 (0-200) mg/g CRE 09/02/18 Range/Units 11:35 WBC 7.3 (4.4-11.0) K/mm3 RBC 3.68 L (4.2-5.4) M/mm3 Hgb 9.6 L (12.0-15.0) g/dL Hct 30.5 L (37-47) % MCV 82.9 (81-99) fL MCH 26.1 L (27.0-32.0) pg MCHC 31.5 L (32-36) g/dL RDW Std Deviation 41.4 (35.1-43.9) fl RDW Coeff of Angelina 13.9 (11.6-14.6) % Plt Count 186 (150-450) K/mm3 MPV 11.1 (6.2-12.0) fl PT (11.7-14.9) SECONDS INR APTT (24.1-36.2) Seconds Creatinine (0.55-1.02) mg/dL Estim Creat Clear Calc ml/min Est GFR (MDRD) Af Amer (>60) mL/min Est GFR (MDRD) Non-Af (>60) mL/min Uric Acid (2.6-6.0) mg/dL AST (15-37) U/L ALT (13-56) U/L U Random Total Protein (<11.9) mg/dL Urine Creatinine (NO RANGE EST.) mg/dL Protein/Creatinin Ratio (0-200) mg/g CRE Multi Select Codes - Urinary/Genital Urinary/Genital CPT Codes: Other Procedure See Report - [id number]
== END 2018-09-02 12:39 | disposition home or self-care (01) ==
LOC: WPOUT 10:51 → OBT 10:52
PROVIDERS: Nurse Practitioner Women's Health; Family Provider Student in an Organized Health Care Education/Training Program; PCP Student in an Organized Health Care Education/Training Program; Referring Provider Obstetrics & Gynecology; Visit Provider Obstetrics & Gynecology
DX: O26.893 Other specified pregnancy related conditions, third trimester (principal); R03.0 Elevated blood-pressure reading, without diagnosis of hypertension; Z3A.38 38 weeks gestation of pregnancy
CPT/HCPCS: 82565; 82570; 84156; 84450; 84460; 84550; 85027; 85610; 85730

== ENCOUNTER → 2018-09-02 12:52 | Outpatient (CLI) | payer BC, SELFPAY ==
[2018-09-02 11:41] VITALS: BMI 32.0
== END ==
PROVIDERS: Family Provider Student in an Organized Health Care Education/Training Program; PCP Student in an Organized Health Care Education/Training Program; Referring Provider Nurse Practitioner Women's Health; Visit Provider Nurse Practitioner Women's Health
DX: O13.9 Gestational [pregnancy-induced] hypertension without significant proteinuria, unspecified trimester (principal)

== ENCOUNTER 2018-09-09 10:37 | Inpatient (IN) | payer BC, SELFPAY ==
[2018-09-09 10:05] VITALS: BMI 32.0
[2018-09-09] MEDS: Lactated Ringers 1,000 ML 50 ML IV ×2 (11:05→14:33)
[2018-09-09 11:20] VITALS: BMI 32.5
[2018-09-09 11:33] LABS: Absolute Lymphocyte Count 1.97 X10^3/uL (0.83-4.51); Absolute Neutrophil Count 6.5 X10^3/uL (2.0-7.7); Basophil# 0.04 X10^3/uL; Basophil% 0.4 % (0-1); Eosinophil# 0.08 X10^3/uL; Eosinophils% 0.9 % (0-5); Hematocrit 32.4 % (37-47); Hemoglobin 10.2 g/dL (12.0-15.0); Lymphocyte # 1.97 X10^3/ul (4.0); Lymphocyte % 20.9 % (19-41); Mean Corp Hgb Conc 31.5 g/dL (32-36); Mean Corpuscular Volume 82.7 fL (81-99); Mean Platelet Vol. 11.5 fl (6.2-12.0); Monocyte% 7.4 % (0-10); NRBC Flagged by Analyzer 0 % (0-5); Neutrophil # 6.48 X10^3/uL (2.7-7.7); Neutrophil % 68.9 % (47-70); Platelet Count 184 K/mm3 (150-450); RBC Distribution Width CV 14.1 % (11.6-14.6); RBC Distribution Width SD 41.8 fl (35.1-43.9); Red Blood Count 3.92 M/mm3 (4.2-5.4); White Blood Count 9.4 K/mm3 (4.4-11.0)
[2018-09-09] MEDS: fentaNYL-bupivacaine (epidural) 100 ML BAG EPIDURAL (15:09)
[2018-09-09] MEDS: Oxytocin 30 units/NS 500 ml 30 UNITS/500 ML IV.SOLN IV (15:28)
[2018-09-09] MEDS: Ondansetron 4 MG/2 ML Vial IV (16:53)
[2018-09-09] MEDS: Oxytocin 30 units/NS 500 ml 30 UNITS/500 ML IV.SOLN 334 UNITS IV (20:14)
--- NOTE | 2018-09-09 20:23 | HP.PCM_ITS ---
- Problem List (1) SROM (spontaneous rupture of membranes) Status: Acute (2) Anemia affecting second Status: Acute Comment: iron recommended. (3) Contraception management Status: Acute Qualifiers: Comment: liletta iud pp- No PA required Reference number [id number] (4) Elevated blood pressure affecting in third trimester, antepartum Status: Acute (5) GBS (group B Streptococcus carrier), +RV culture, currently Status: Acute Comment: treat in labor (6) Palpitations Status: Acute (7) Status: Acute Qualifiers: Comment: genetic, carrier, ntd screening declined. anatomy scan ordered. 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 Machine Required: No Is patient in pain?: No Allergies No Known Allergies Allergy (Verified 09/09/18 10:05) Medications Vits [Prenatabs FA] 1 tab PO DAILY 03/01/16 [History Confirmed 09/09/18] Last Menstral Period: 12/08/17 Zika: Zika virus screening: Negative : No PFSH PFSH Medical History Palpitations (Acute) Tachycardia (Acute) Migraine headache (Acute) IBS (irritable bowel syndrome) (Chronic) Family History Mother Crohns disease SVT (supraventricular tachycardia) Father Colitis Uncle Atrial fibrillation Social History (Updated 09/09/18 @ 10:27 by Marsha Pelayo MD) number of children: 1 current occupational status: employed current occupation: [employer] Smoking Status: Never smoker alcohol intake: never substance use type: does not use caffeine: No what type of physical activity do you participate in: running frequency: 3-4 times per week seatbelt use: always do you feel safe at home: Yes additional social history: [employer] Pregancy History 2 Elective abortions Hx Para 1 Spontaneous abortions Hx # Term Pregnancies 1 Ectopic pregnancies Hx # Pregnancies Multiple births # of living children 1 Past Pregnancies Del. Date Name GA/Weeks Outcome Route Bth Weight Gen Labor Lgth Anesthesia Del Locatn Provider FOB 03/02/16 [place] 41 live - full term 7 lbs 6 oz. Femal e 14 hours epidural [facility] Dr. Ibanez HPI 39 WEEK OB: Details: ALVA STRAUSS is a 23 year old who presents for routine OB visit. OB Visit CASEY Calculator Estimated Delivery Date Method Current WG Current Estimate 09/14/18 LMP (Certain) 39w 2d Expected Delivery Route/Plan Specific Issue/Plans flu vaccine: given tdap vaccine: given rhogam: na LARC form signed: teofilo labor support person: Gordon pain management: epidural cut cord/dad catch: yes : yes PP control planned: liletta IUD discussed possible routes of delivery and associated risks: [] special requests: [] Initial Weight: 140 lb Date EGA Weight BP Urine Prot Glucose FHR FuHt Pres Mov CTX Dilation Effaced St Visit Note 03/01/18 11w 6d 144 lb 2 oz (+4 lb 2 oz) 112/66 Negative Negative 160 co some headaches ordered phenergan, no vb cramping 03/29/18 15w 6d 143 lb (+3 lb) 110/86 Negative Negative 160 no vb co some cramping 05/03/18 20w 6d 148 lb (+8 lb) 106/62 Negative Negative 150 co palpitations- recommend getting cardiac evaluation. high heart rate up to 150. no vb co some vaginal itching. dsicussed monistat and skin protectants as needed 06/02/18 25w 1d 155 lb (+15 lb) 110/80 Negative Negative 150 25 still having palpitations- still needs to get appointment with cardio. no vb lof good fm no regular ctx 06/28/18 28w 6d 160 lb 2 oz (+20 lb 2 oz) 114/70 Negative Negative 150 29 tdap today no vb lof good fm no regular ctx 07/14/18 31w 1d 163 lb 6 oz (+23 lb 6 oz) 116/82 Negative Negative 154 32 absent No VB, LOF. Did not get tdap last visit 07/29/18 33w 2d 167 lb 8 oz (+27 lb 8 oz) 128/80 Negative Negative 145 34 no vb lof good fm no regular ctx. still having some palpitations. 08/09/18 34w 6d 171 lb (+31 lb) 122/82 Negative Negative 134 35 Decr frequent 1.20 -4 Not feeling well. Headache yesterday. Irreg CTX, more pressure, decre FM. NO VB, LOF 08/19/18 36w 2d 171 lb (+31 lb) 118/78 Negative Negative 180 36 no vb lof good fm no regular ctx but co diarrhea x 7 days, doesn't feel well. no abdominl pain. recommend triage evaluation 08/26/18 37w 2d 173 lb (+33 lb) 120/82 Negative Negative 140 37 Cephalic Active occasional 1 Yes -3 still uncomfortable no regular ctx go od fm no vb lof 09/02/18 38w 2d 175 lb (+35 lb) 140/90 138/94 Trace Negative Cephalic Active occasional 2.70 -2 Headache today I don't feel right. No VB, LOF. Good FM. 09/09/18 39w 2d 177 lb (+37 lb) 128/80 Negative Negative 140 Visit Notes Visit Date: 09/09/18 ??No visit notes to display Visit Date: 09/02/18 ??Headache today I don't feel right. No VB, LOF. Good FM. ??AURA Lutz on 09/02/18 Visit Date: 08/26/18 ??still uncomfortable no regular ctx good fm no vb lof ??Marsha Pelayo MD on 08/26/18 Visit Date: 08/19/18 ??no vb lof good fm no regular ctx but co diarrhea x 7 days, doesn't feel well. no abdominl pain. recommend triage evaluation ??Marsha Pelayo MD on 08/19/18 Visit Date: 08/09/18 ??Not feeling well. Headache yesterday. Irreg CTX, more pressure, decre FM. NO VB, LOF ??AURA Lutz on 08/09/18 Visit Date: 07/29/18 ??no vb lof good fm no regular ctx. still having some palpitations. ??Marsha Pelayo MD on 07/29/18 Visit Date: 07/14/18 ??No VB, LOF. Did not get tdap last visit ??AURA Lutz on 07/14/18 Visit Date: 06/28/18 ??tdap today no vb lof good fm no regular ctx ??Marsha Pelayo MD on 06/28/18 Visit Date: 06/02/18 ??still having palpitations- still needs to get appointment with cardio. no vb lof good fm no regular ctx ??Marsha Pelayo MD on 06/04/18 Visit Date: 05/03/18 ??co palpitations- recommend getting cardiac evaluation. high heart rate up to 150. no vb co some vaginal itching. dsicussed monistat and skin protectants as needed ??Marsha Pelayo MD on 05/03/18 Visit Date: 03/29/18 ??no vb co some cramping ??Marsha Pelayo MD on 03/29/18 Visit Date: 03/01/18 ??co some headaches ordered phenergan, no vb cramping ??Marsha Pelayo MD on 03/01/18 ACOG First Trimester First Trimester: Desire for , Alcohol, Tobacco Cessation, Illicit/Recreational Drug/Substance Use, Intimate Partner Violence, Barriers to care, Unstable Housing, Communication Barriers, Environmental/Work Hazards, Anticipated Course of Care, Toxoplasmosis Precations, Use of Any medications, Sexual activity, Exercise, Dental Care, Sauna/Hot tub use, Seat Belt use, Childbirth classes/Hospital facilities, , Travel, Indications for US and Screening for Aneuploidy Second Trimester Second Trimester: Signs and Symptoms of Labor, Selecting a care provider, Reproductive Life Planning, Care Planning, Tobacco Cessation, Depression/Anxiety and Intimate Partner Violence Third Trimester Third Trimester: Pain Management Plans, Labor support person(s), Immediate Larc, Movement Monitoring and Infant Feeding Yes ; discussed Trial of Labor after Counseling or discussed Circumcision preference Diagnostics Diagnostics Labs Hct 30.5 % (37-47) L 09/02/18 Hgb 9.6 g/dL (12.0-15.0) L 09/02/18 Details: HIV: Urine Culture: Sequential Screen: NIPT Screen: ROS Const Reports system reviewed and no additional complaints, except as docu Card Reports system reviewed and no additional complaints, except as docu Resp Reports system reviewed and no additional complaints, except as docu GI Reports system reviewed and no additional complaints, except as docu, Reports nausea Reports system reviewed and no additional complaints, except as docu Musc Reports system reviewed and no additional complaints, except as docu Exam Const General: cooperative, healthy appearing, comfortable, anxious HENND Head: normal to inspection Nose: external nose normal Face and sinus: normal facial exam Neck Neck: normal visual inspection, full ROM, no lymphadenopathy Thyroid: thyroid normal Chest Chest palpation & inspection: normal inspection of the chest Resp Effort & Inspection: normal respiratory effort GI Inspection: normal to inspection Palpation: soft, other (gravid uterus) Other: vertex and appropriate size for gestational age Other: Cervical Exam: Extrem General: pedal edema Results [id number] Office Urine Glucose Negative Last Edit by Sammi Craft on 09/09/18 10:0 9 Office Urine Protein Negative Last Edit by Sammi Craft on 09/09/18 10:0 9 Assessment & Plan Problems 1. Elevated blood pressure affecting in third trimester, antepartum O16.3 2. GBS (group B Streptococcus carrier), +RV culture, currently O99.820 3. Encounter for management of intrauterine contraceptive device (IUD), unspecified IUD management type Z30.431 4. Anemia affecting second O99.019 5. Palpitations R00.2 6. Tachycardia R00.0 7. 39 weeks gestation of Z3A.39 8. Encounter for supervision of other normal in first trimester Z34.81 Plan patient in active labor srom in office clear fluid- to l and d epi PRN gbs neg
--- NOTE | 2018-09-09 20:24 | PCM.OPRPT ---
Problem List (1) SROM (spontaneous rupture of membranes) Status: Acute (2) Anemia affecting second Status: Acute Comment: iron recommended. (3) Contraception management Status: Acute Qualifiers: Comment: liletta iud pp- No PA required Reference number [id number] (4) Elevated blood pressure affecting in third trimester, antepartum Status: Acute (5) GBS (group B Streptococcus carrier), +RV culture, currently Status: Acute Comment: treat in labor (6) Palpitations Status: Acute (7) Status: Acute Qualifiers: Comment: genetic, carrier, ntd screening declined. anatomy scan ordered. Normal anatomy US (8) Supervision of normal Status: Acute Qualifiers: Comment: PRR CASEY 09/14/18 Boy Jamal Monzon [place] (9) Tachycardia Status: Acute Vaginal Delivery Maternal Presentation: Active Labor ial srom Amniotic Membrane Rupture Type: Spontaneous Amniotic Fluid Description: Clear Final CASEY: 09/14/18 Gestational age: 39 Weeks and 2 Days Date of Procedure: 09/09/18 Pre-Operative Diagnosis: ial srom Post-Operative Diagnosis: same Surgery/ Procedure Performed: Spontaneous Vaginal Delivery Type of Anesthesia: Epidural Description of Procedure: Patient began pushing and delivered the head in the KERRY presentation. The head was delivered atraumatically . The anterior and posterior shoulders delivered without complication followed by the rest of the infant and the was placed on the maternal abdomen. Delayed cord clamping was employed for approximately 60 seconds. Cord was clamped and cut and gentle traction was applied to the cord and the placenta delivered spontaneously immediately following it was noted to be intact with three-vessel cord. The perineum and vagina were inspected and noted to have no laceration. EBL was 200 cc. Patient and tolerated delivery well. Presentation: KERRY Placental Delivery Description: Spontaneous Placenta Disposition: [facility] Cord Vessel Description: 3 Vessels Cord Entanglement: None Estimated Blood Loss: 200 Infant A gender: Male Episiotomy Description: None Laceration: None Medications given after delivery: IV Pitocin Complications: None
[2018-09-09] MEDS: Oxytocin 30 units/NS 500 ml 30 UNITS/500 ML IV.SOLN 167 UNITS IV (20:45)
[2018-09-09] MEDS: 0.9% Saline Lock 10 ML Syringe IV (22:41)
[2018-09-09 22:47] VITALS: BP 115/63; PULSE 83; RESP 18; TEMP 37.6
--- NOTE | 2018-09-10 00:41 | NURSING ---
At 0020 patient up to bathroom with assist of this RN and Valentina RN. Pt had some difficulty with right leg but tolerated activity well. Pt voided in restroom, performed michael care and pad was changed with new ice pack. Pt then back to bed.
[2018-09-10] MEDS: Naproxen 250 MG Tablet 500 MG PO ×2 (02:48→15:53)
[2018-09-10 02:50] VITALS: BP 125/60; PULSE 101; RESP 18; TEMP 37
[2018-09-10] MEDS: Acetaminophen 500 MG Tablet 1000 MG PO (07:32)
[2018-09-10 08:25] VITALS: BP 114/75; PULSE 85; RESP 16; TEMP 36.8; O2SAT 98
--- NOTE | 2018-09-10 09:22 | PCM.PN.OB ---
Patient Problems: Active and Suspected Problems (Last Reviewed 09/09/18 @ 10:05 by Sammi Craft) SROM (spontaneous rupture of membranes) (Acute) Subjective: doing well no complaints pain controlled no CP SOB N V ambulating well tolerating po lochia moderate, going well - Physical Exam General: Alert, Oriented x3, No apparent distress Vital Signs Temp Pulse Resp BP Pulse Ox 98.2 F 85 16 114/75 98 09/10/18 08:25 09/10/18 08:25 09/10/18 08:25 09/10/18 08:25 09/10/18 08:25 Oxygen Delivery Method Room Air Weight: 177 lb 12.8 oz Body Mass Index (BMI) 32.5 Intake and Output for Last 24 Hours 09/08/18 09/09/18 09/10/18 23:59 23:59 23:59 Intake Total 4488 / 4488 Output Total 1700 / 1700 400 / 400 Balance 2788 / 2788 -400 / -400 Laboratory Tests Past 24 Hrs 09/09/18 09/09/18 11:05 11:05 WBC 9.4 RBC 3.92 L Hgb 10.2 L Hct 32.4 L MCV 82.7 MCH 26.0 L MCHC 31.5 L RDW Std Deviation 41.8 RDW Coeff of Angelina 14.1 Plt Count 184 MPV 11.5 Immature Gran % (Auto) 1.500 H Neut % (Auto) 68.9 Lymph % (Auto) 20.9 [place] % (Auto) 7.4 Eos % (Auto) 0.9 Baso % (Auto) 0.4 Absolute Neuts (auto) 6.5 Absolute Lymphs (auto) 1.97 Nucleated RBC % 0 Blood Type O POSITIVE Antibody Screen NEGATIVE Medical Necessity - Tobacco Use Smoking Status: Never smoker Assessment/Plan All Active Problems (Last Reviewed 09/09/18 @ 10:05 by Sammi Craft) Elevated blood pressure affecting in third trimester, antepartum (Acute) SROM (spontaneous rupture of membranes) (Acute) GBS (group B Streptococcus carrier), +RV culture, currently (Acute) Contraception management (Acute) Anemia affecting second (Acute) Palpitations (Acute) Tachycardia (Acute) (Acute) Supervision of normal (Acute) s/p PPD # 1 1. routine post delivery care 2. breast feeding- support given 3. rh positive 4. rubella immune
[2018-09-10] MEDS: Prenatal Vits Tablet 1 TABLET PO (12:07)
[2018-09-10 12:10] VITALS: BP 130/67; PULSE 83; RESP 16; TEMP 36.6; O2SAT 99
[2018-09-10 15:58] VITALS: BP 130/74; PULSE 89; RESP 16; TEMP 37.1; O2SAT 99
[2018-09-10 20:40] VITALS: BP 120/70; PULSE 86; RESP 18; TEMP 37
[2018-09-10] MEDS: Senna/Docusate Sodium 1 Tablet PO (22:10)
--- NOTE | 2018-09-14 15:40 | NURSING ---
follow up call done, patient says feeding is going really well, she feels great, no complaints, no questions and was satisfied with her care.
== END 2018-09-10 22:30 | disposition home or self-care (01) | DRG 807 ==
LOC: WP 10:46
PROVIDERS: Admitting Provider Obstetrics & Gynecology; Family Provider Student in an Organized Health Care Education/Training Program; PCP Student in an Organized Health Care Education/Training Program; Referring Provider Obstetrics & Gynecology; Visit Provider Obstetrics & Gynecology
DX: O99.824 Streptococcus B carrier state complicating childbirth (principal); Z37.0 Single live birth; O99.02 Anemia complicating childbirth; D64.9 Anemia, unspecified; Z3A.39 39 weeks gestation of pregnancy
CPT/HCPCS: 59025; 59050; 85025; 86850; 86900; 99218; J7120; A4216; G0378; J2405

== ENCOUNTER → 2018-11-04 14:12 | Outpatient (CLI) | payer BC, SELFPAY ==
[2018-11-04 10:48] VITALS: BMI 32.5
[2018-11-07 11:42] LABS: HPV Reflexed? NOT INDICATED
== END ==
PROVIDERS: Family Provider Student in an Organized Health Care Education/Training Program; PCP Student in an Organized Health Care Education/Training Program; Visit Provider Obstetrics & Gynecology
DX: Z12.4 Encounter for screening for malignant neoplasm of cervix (principal)
CPT/HCPCS: 88175; G0145

== ENCOUNTER → 2020-06-11 13:39 | Outpatient (CLI) | payer BC, SELFPAY ==
[2020-06-11 13:19] VITALS: BMI 27.1
[2020-06-11 14:33] LABS: T4 Free Direct 0.85 ng/dL (0.76-1.46); Thyroid Stim Hormone (TSH) 0.89 uIU/mL (0.358-3.74)
[2020-06-15 16:06] LABS: Testosterone Free 3.9 pg/mL (0.0-4.2)
== END ==
PROVIDERS: PCP Student in an Organized Health Care Education/Training Program; Referring Provider Nurse Practitioner Women's Health; Visit Provider Nurse Practitioner Women's Health
DX: Z13.29 Encounter for screening for other suspected endocrine disorder (principal); N92.6 Irregular menstruation, unspecified; L65.9 Nonscarring hair loss, unspecified; L70.9 Acne, unspecified
CPT/HCPCS: 36415; 82627; 84402; 84439; 84443; 82626

== ENCOUNTER → 2023-04-02 | Outpatient (CLI) | payer BC, SELFPAY ==
[2023-04-09 21:47] LABS: HPV Reflexed? NOT INDICATED
== END | disposition home or self-care (01) ==
LOC: LABSPEC 16:24
PROVIDERS: PCP Student in an Organized Health Care Education/Training Program; Referring Provider Registered Nurse; Visit Provider Registered Nurse
DX: Z12.4 Encounter for screening for malignant neoplasm of cervix (principal)
CPT/HCPCS: 88175; G0145

== ENCOUNTER → 2023-07-20 | Outpatient (CLI) | payer BC, SELFPAY ==
[2023-07-20 14:58] LABS: Hemoglobin A1c 5.3 % (3.8-5.6)
[2023-07-20 15:03] LABS: Estradiol 101.3 pg/mL; Prolactin 12.8 ng/mL
== END | disposition home or self-care (01) ==
PROVIDERS: PCP Student in an Organized Health Care Education/Training Program; Referring Provider Obstetrics & Gynecology; Visit Provider Obstetrics & Gynecology
DX: E28.2 Polycystic ovarian syndrome (principal)
CPT/HCPCS: 36415; 82627; 82670; 83001; 83036; 83498; 84146; 84402; 84443; 82626

== ENCOUNTER → 2023-08-03 | Outpatient (CLI) | payer BC, SELFPAY ==
--- NOTE | 2023-08-03 11:52 | US_ITS ---
STUDY: ULTRASOUND OF THE FEMALE PELVIS - COMPLETE REASON FOR EXAM: Female, 28 years old. PCOS LMP: TECHNIQUE: Transabdominal and transvaginal TECHNICAL QUALITY: Adequate. COMPARISON: None. FINDINGS: The uterus is anteverted and is in a midline position. The uterus measures 9.16 x 4.08 x 5.71 cm. Normal uterine cervix. The endometrium measures 6.4 mm in thickness, and is hyperechoic. There is no demonstrated endometrial mass. There is no demonstrated myometrial mass. I.U.D. - The patient does not have an I.U.D. The right ovary is visualized. The right ovary measures 2.84 x 1.54 x 2.39 cm. There is no right ovarian cyst or ovarian mass. There is no visualized right adnexal mass or complex lesion. There is normal arterial and normal venous vascularity. The left ovary is visualized. The left ovary measures 1.14 x 2.1 x 2.46 cm. There is no left ovarian cyst or ovarian mass. There is no visualized left adnexal mass or complex lesion. There is normal arterial and normal venous vascularity. There is no fluid in the cul-de-sac. The pre void volume of the bladder was 728.28 ml. The post void volume of the bladder was ml. US/Pelvic w/ Transvaginal IMPRESSION: Normal female pelvis. Electronically Signed: Johnathan Johnson MD at 16:23 EDT ,
== END | disposition home or self-care (01) ==
PROVIDERS: PCP Student in an Organized Health Care Education/Training Program; Referring Provider Obstetrics & Gynecology; Visit Provider Obstetrics & Gynecology
DX: E28.2 Polycystic ovarian syndrome (principal)
CPT/HCPCS: 76830; 76856